=== PATIENT | male | born 1950 | race Caucasian/White ===

== ENCOUNTER 2016-04-26 08:59 | Outpatient (RCR) | payer MEDICARE, OTHER | END 2016-04-27 | disposition home or self-care (01) | LOC: CR 08:59 | PROVIDERS: ATTEND Internal Medicine Cardiovascular Disease | DX: Z48.812 Encounter for surgical aftercare following surgery on the circulatory system (principal); Z95.1 Presence of aortocoronary bypass graft | CPT/HCPCS: 93798 ==

== ENCOUNTER 2016-05-10 10:18 | Outpatient (RCR) | payer OTHER, MEDICARE ==
--- OUTSIDE RECORDS SUMMARY | 2016-04-28 11:45 | XMS REPORT | Continuity of Care Document ---
Author Author [facility] Organization [facility] Address Unknown Phone Unavailable Support Name Relationship Address Phone NAOMI JACOBSON MD Caregiver [address] [place], [place] [address] CHRISTOPHE ADHIKARI MD Caregiver [address] [facility] [address] [address] [address] Next Of Kin [address] [place] [address] Care Team Providers Care Medical Cost Consultant Name Role Phone NAOMI JACOBSON MD PCP Insurance Providers Payer Name Policy Number Subscriber Name Relationship [employer] [id number] Miguel Leal 18 Self / Same As Patient [facility] [id number] Miguel Leal 18 Self / Same As Patient Problems No problem information available. Medications No medication information available. Social History Social History Problem Response Recorded Date/Time Recent Foreign Travel No 01/28/2016 8:47am Hospital Discharge Instructions No hospital discharge instructions. Plan of Care Prescriptions See Medication Section Functional Status No functional status results. Allergies, Adverse Reactions, Alerts No allergy information available. Immunizations No immunization records. Vital Signs No known vital signs results. Results No known relevant diagnostic tests, laboratory data and/or discharge summary. Procedures No known history of procedures. Encounters Encounter Location Arrival/Admit Date Discharge/Depart Date Attending Provider Discharged Recurring [facility] 04/26/16 8:59am 11:59pm CHRISTOPHE ADHIKARI MD
== END 2016-07-27 | disposition home or self-care (01) ==
LOC: CR 10:18
PROVIDERS: ATTEND Internal Medicine Cardiovascular Disease
DX: Z48.812 Encounter for surgical aftercare following surgery on the circulatory system (principal); Z95.1 Presence of aortocoronary bypass graft
CPT/HCPCS: 93798

== ENCOUNTER → 2017-10-05 | Outpatient (CLI) | payer MEDICARE ==
[2017-10-05 07:32] LABS: ABSOLUTE RETIC # 49 10e9/L (24-90); BASOPHILS % (AUTO) 0 % (0-10); EOSINOPHILS # (AUTO) 0.1 10^3/uL (0.0-0.3); EOSINOPHILS % (AUTO) 1 % (0-10); HEMATOCRIT 35 % (40-54); HEMOGLOBIN 10.8 G/DL (13.3-17.7); LYMPHOCYTES % (AUTO) 24 % (12-44); MEAN CORPUSCULAR HEMOGLOBIN 25 PG (25-34); MEAN CORPUSCULAR HGB CONC 31 G/DL (32-36); MEAN CORPUSCULAR VOLUME 82 FL (80-99); MEAN PLATELET VOLUME 7.9 FL (7.4-10.4); MONOCYTES % (AUTO) 11 % (0-12); NEUTROPHILS # (AUTO) 5.3 X 10^3 (1.8-7.8); NEUTROPHILS % (AUTO) 64 % (42-75); PLATELET COUNT 311 10^3/uL (130-400); RED BLOOD COUNT 4.25 10^6/uL (4.35-5.85); RED CELL DISTRIBUTION WIDTH 18.9 % (10.0-14.5); RETICULOCYTE % 1.14 % (0.50-2.40); WHITE BLOOD COUNT 8.3 10^3/uL (4.3-11.0)
--- NOTE | 2017-10-05 13:27 | Diagnostic Imaging Report ---
PROCEDURE: US Gallbladder. TECHNIQUE: Multiple real-time grayscale images were obtained over the right upper quadrant in various projections. INDICATION: Nausea and vomiting for two weeks. FINDINGS: The liver is upper limits of normal in size at 18 cm. No discrete liver mass is identified. The portal vein is patent and shows normal directional flow. Gallbladder is somewhat distended, but no gallstones or sludge are identified. There is no wall thickening, pericholecystic fluid, or biliary ductal dilatation. The pancreas is obscured by bowel gas. The right kidney is unremarkable. There is no ascites. IMPRESSION: Mild gallbladder hydrops. No other significant abnormality is detected. Dictated by: Dictated on workstation # [id number]
== END ==
LOC: RAD 06:48
PROVIDERS: ATTEND Internal Medicine Cardiovascular Disease
DX: K82.1 Hydrops of gallbladder (principal); D64.9 Anemia, unspecified; R53.83 Other fatigue; Z95.1 Presence of aortocoronary bypass graft; Z95.0 Presence of cardiac pacemaker
CPT/HCPCS: 36415; 76705; 82607; 82728; 82746; 83540; 85025; 85045

== ENCOUNTER 2018-12-04 10:58 | Outpatient (RCR) | payer MEDICARE | END 2018-12-07 | disposition home or self-care (01) | PROVIDERS: ATTEND Neurological Surgery | DX: M50.30 Other cervical disc degeneration, unspecified cervical region (principal) ==

== ENCOUNTER 2018-12-14 11:16 | Outpatient (RCR) | payer MEDICARE | END 2018-12-14 14:10 | disposition home or self-care (01) | PROVIDERS: ATTEND Neurological Surgery | DX: M50.30 Other cervical disc degeneration, unspecified cervical region (principal) ==

== ENCOUNTER → 2021-01-17 | Outpatient (CLI) | payer MEDICARE, MEDICAID ==
[2021-01-17 17:09] LABS: CLARITY,URINE SLIGHTLY CLOUDY; COLOR,URINE YELLOW; GLUCOSE, URINE (UA) NEGATIVE (NEGATIVE); KETONES,URINE NEGATIVE (NEGATIVE); NITRITE,URINE POSITIVE (NEGATIVE); PROTEIN,URINE NEGATIVE (NEGATIVE)
[2021-01-17 17:10] LABS: BACTERIA,URINE LARGE /HPF; BILIRUBIN,URINE NEGATIVE (NEGATIVE); HYALINE CASTS, URINE 0-2 /LPF; LEUKOCYTE ESTERASE ,URINE 1+ (NEGATIVE); URINE OTHER XRAY DYE CRYSTALS /HPF
== END ==
PROVIDERS: ATTEND Family Medicine
DX: N39.0 Urinary tract infection, site not specified (principal)
CPT/HCPCS: 81000; 87088

== ENCOUNTER 2021-03-11 18:53 | Emergency (ER) | payer MEDICARE, MEDICAID ==
[~2021-03-11] VITALS: Ht 172.7 cm; Wt 100.0 kg
[2021-03-11 18:55] VITALS: BP 114/69
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
--- NOTE | 2021-03-11 19:46 | Diagnostic Imaging Report ---
PROCEDURE: CT abdomen and pelvis without contrast. TECHNIQUE: Multiple contiguous axial images were obtained through the abdomen and pelvis without the use of intravenous contrast. Auto Exposure Controls were utilized during the CT exam to meet ALARA standards for radiation dose reduction. INDICATION: Abdominal distention. COMPARISON: None. FINDINGS: There is chronic elevation of the left hemidiaphragm. Otherwise, lung bases are clear. The gallbladder, solid organs and vascular structures are grossly unremarkable. There is some gas and constipation throughout the colon. The small bowel is unremarkable. There is no obstruction, ileus, free air or free fluid. Urinary bladder is decompressed with a Dumont catheter. There is no prostate enlargement. Osseous structures are age-appropriate. IMPRESSION: 1. Constipation and gas throughout the colon. No bowel obstruction, free air or free fluid. 2. Mild atherosclerosis of the abdominal aorta without evidence of aneurysm. 3. Chronic elevation of the left hemidiaphragm. Dictated by: Dictated on workstation # [id number]
== END 2021-03-11 21:05 | disposition home or self-care (01) ==
LOC: EDUNIT# 18:53 → ER FS 18:54
DX: K59.03 Drug induced constipation (principal); R14.0 Abdominal distension (gaseous); E66.9 Obesity, unspecified; G47.30 Sleep apnea, unspecified; I10 Essential (primary) hypertension; Z68.33 Body mass index [BMI] 33.0-33.9, adult
CPT/HCPCS: 74176; 99283

== ENCOUNTER 2021-04-29 16:12 | Emergency (ER) | payer MEDICARE, MEDICAID ==
[2021-04-29] MEDS ORDERED: NS IV 500 ML 500 ML IV ONE (16:30)
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
[2021-04-29 16:38] LABS: BASOPHILS # (AUTO) 0.1 10^3/uL (0.0-0.1); BASOPHILS % (AUTO) 1 % (0-10); EOSINOPHILS # (AUTO) 0.1 10^3/uL (0.0-0.3); EOSINOPHILS % (AUTO) 1 % (0-10); HEMATOCRIT 35 % (40-54); HEMOGLOBIN 10.5 g/dL (13.3-17.7); LYMPHOCYTES # (AUTO) 1.6 10^3/uL (1.0-4.0); LYMPHOCYTES % (AUTO) 17 % (12-44); MEAN CORPUSCULAR HEMOGLOBIN 25 pg (25-34); MEAN CORPUSCULAR HGB CONC 30 g/dL (32-36); MEAN CORPUSCULAR VOLUME 82 fL (80-99); MONOCYTES # (AUTO) 0.6 10^3/uL (0.0-1.0); MONOCYTES % (AUTO) 7 % (0-12); NEUTROPHILS # (AUTO) 6.9 10^3/uL (1.8-7.8); NEUTROPHILS % (AUTO) 75 % (42-75); PLATELET COUNT 234 10^3/uL (130-400); WHITE BLOOD COUNT 9.2 10^3/uL (4.3-11.0)
[2021-04-29 16:40] LABS: BILIRUBIN,URINE NEGATIVE (NEGATIVE); CLARITY,URINE SL CLOUDY; COLOR,URINE YELLOW; GLUCOSE, URINE (UA) 2+ (NEGATIVE); KETONES,URINE TRACE (NEGATIVE); LEUKOCYTE ESTERASE ,URINE 2+ (NEGATIVE); NITRITE,URINE NEGATIVE (NEGATIVE); PH,URINE 6.5 (5-9); PROTEIN,URINE TRACE (NEGATIVE)
[2021-04-29 16:48] LABS: BACTERIA,URINE NEGATIVE /HPF; WBC,URINE 0-2 /HPF
[2021-04-29 17:01] LABS: BILIRUBIN,TOTAL 0.3 MG/DL (0.1-1.0); CALCIUM 9.4 MG/DL (8.5-10.1); CREATININE SERUM 0.8 MG/DL (0.60-1.30); POTASSIUM 4.2 MMOL/L (3.6-5.0); TOTAL PROTEIN 7.7 GM/DL (6.4-8.2)
[2021-04-29 17:02] LABS: ALBUMIN 3.8 GM/DL (3.2-4.5)
[2021-04-29 17:36] LABS: ABG PCO2 53 MMHG (35-45); ABG PO2 79 MMHG (79-93)
[2021-04-29 17:37] LABS: ABG BASE EXCESS 6.6 MMOL/L (-2.5-2.5); ABG OXYGEN SATURATION 96 % (94-100); ABG TCO2 34.4 MMOL/L (21.0-31.0)
[2021-04-29 17:38] LABS: ALLENS TEST OK; INSPIRED O2 4 L; PATIENT TEMP 36.4 C; VENTILATOR NO
[2021-04-29 18:15] VITALS: BP 120/58
== END 2021-04-29 18:25 | disposition home or self-care (01) ==
LOC: EDUNIT# 16:12 → ER FS 16:13
DX: T40.605A Adverse effect of unspecified narcotics, initial encounter (principal); E66.9 Obesity, unspecified; Z68.33 Body mass index [BMI] 33.0-33.9, adult; Z79.01 Long term (current) use of anticoagulants
CPT/HCPCS: 36415; 80053; 81000; 82805; 85025; 86141; 87070; 87077; 87205; 93005; 99291

== ENCOUNTER → 2021-06-28 | Outpatient (CLI) | payer MEDICARE, MEDICAID ==
[2021-06-28 14:32] LABS: CREATININE SERUM 0.68 MG/DL (0.60-1.30); POTASSIUM 4.9 MMOL/L (3.6-5.0)
[2021-06-28 14:33] LABS: ALBUMIN 3.9 GM/DL (3.2-4.5); BILIRUBIN,TOTAL 0.2 MG/DL (0.1-1.0); CALCIUM 8.8 MG/DL (8.5-10.1); HEMATOCRIT 36 % (40-54); HEMOGLOBIN 10.8 g/dL (13.3-17.7); MEAN CORPUSCULAR HEMOGLOBIN 24 pg (25-34); MEAN CORPUSCULAR HGB CONC 30 g/dL (32-36); MEAN CORPUSCULAR VOLUME 79 fL (80-99); MEAN PLATELET VOLUME 9.3 fL (9.0-12.2); PLATELET COUNT 251 10^3/uL (130-400); TOTAL PROTEIN 7.2 GM/DL (6.4-8.2); WHITE BLOOD COUNT 14.9 10^3/uL (4.3-11.0)
[2021-06-28 14:34] LABS: BACTERIA,URINE LARGE /HPF; BILIRUBIN,URINE NEGATIVE (NEGATIVE); CLARITY,URINE TURBID; COLOR,URINE YELLOW; GLUCOSE, URINE (UA) NEGATIVE (NEGATIVE); KETONES,URINE NEGATIVE (NEGATIVE); LEUKOCYTE ESTERASE ,URINE 3+ (NEGATIVE); NITRITE,URINE NEGATIVE (NEGATIVE); PH,URINE 8.5 (5-9); PROTEIN,URINE TRACE (NEGATIVE); TRIPLE PHOSPHATE CRYSTAL,UR LARGE /LPF; WBC,URINE TNTC /HPF
== END ==
PROVIDERS: ATTEND Family Medicine
DX: I48.91 Unspecified atrial fibrillation (principal); B96.4 Proteus (mirabilis) (morganii) as the cause of diseases classified elsewhere; I95.9 Hypotension, unspecified
CPT/HCPCS: 36415; 80053; 81000; 85027; 87088

== ENCOUNTER → 2021-07-21 | Outpatient (CLI) | payer MEDICARE, MEDICAID ==
[2021-07-21 11:56] LABS: BILIRUBIN,URINE NEGATIVE (NEGATIVE); CLARITY,URINE CLOUDY; COLOR,URINE YELLOW; GLUCOSE, URINE (UA) NEGATIVE (NEGATIVE); KETONES,URINE NEGATIVE (NEGATIVE); LEUKOCYTE ESTERASE ,URINE 1+ (NEGATIVE); NITRITE,URINE NEGATIVE (NEGATIVE); PH,URINE 6.5 (5-9); PROTEIN,URINE NEGATIVE (NEGATIVE)
[2021-07-21 12:14] LABS: BASOPHILS # (AUTO) 0.1 10^3/uL (0.0-0.1); BASOPHILS % (AUTO) 1 % (0-10); EOSINOPHILS # (AUTO) 0.1 10^3/uL (0.0-0.3); EOSINOPHILS % (AUTO) 1 % (0-10); HEMATOCRIT 33 % (40-54); HEMOGLOBIN 10.1 g/dL (13.3-17.7); LYMPHOCYTES % (AUTO) 20 % (12-44); MEAN CORPUSCULAR HEMOGLOBIN 24 pg (25-34); MEAN CORPUSCULAR HGB CONC 31 g/dL (32-36); MEAN CORPUSCULAR VOLUME 78 fL (80-99); MEAN PLATELET VOLUME 9.5 fL (9.0-12.2); MONOCYTES % (AUTO) 10 % (0-12); NEUTROPHILS # (AUTO) 6.8 10^3/uL (1.8-7.8); NEUTROPHILS % (AUTO) 69 % (42-75); PLATELET COUNT 270 10^3/uL (130-400); WHITE BLOOD COUNT 9.9 10^3/uL (4.3-11.0)
[2021-07-21 12:58] LABS: BACTERIA,URINE LARGE /HPF
[2021-07-21 12:59] LABS: AMORPHOUS SEDIMENT,UR MOD AMOR PHOSPHATE /LPF
[2021-07-21 13:02] LABS: ALBUMIN 3.7 GM/DL (3.2-4.5); BILIRUBIN,TOTAL 0.3 MG/DL (0.1-1.0); CREATININE SERUM 0.73 MG/DL (0.60-1.30); POTASSIUM 4.9 MMOL/L (3.6-5.0)
== END ==
PROVIDERS: ATTEND Family Medicine
DX: M62.81 Muscle weakness (generalized) (principal); N39.0 Urinary tract infection, site not specified
CPT/HCPCS: 80053; 81000; 85025; 87077; 87088

== ENCOUNTER → 2021-08-24 | Outpatient (CLI) | payer MEDICARE, MEDICAID ==
[2021-08-24 11:19] LABS: BILIRUBIN,URINE NEGATIVE (NEGATIVE); CLARITY,URINE CLOUDY; COLOR,URINE RED; GLUCOSE, URINE (UA) NEGATIVE (NEGATIVE); KETONES,URINE NEGATIVE (NEGATIVE); LEUKOCYTE ESTERASE ,URINE 2+ (NEGATIVE); NITRITE,URINE NEGATIVE (NEGATIVE); PROTEIN,URINE 1+ (NEGATIVE)
[2021-08-24 11:29] LABS: RBC,URINE TNTC /HPF
[2021-08-24 11:30] LABS: BACTERIA,URINE FEW /HPF; HYALINE CASTS, URINE 25-50 /LPF; WBC,URINE 50-100 /HPF
== END ==
PROVIDERS: ATTEND Family Medicine
DX: N31.8 Other neuromuscular dysfunction of bladder (principal)
CPT/HCPCS: 81000; 87088

== ENCOUNTER 2021-10-01 08:07 | Observation (INO) | payer MEDICARE, MEDICAID ==
[~2021-10-01] VITALS: Ht 172.7 cm; Wt 96.3 kg
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
[2021-10-01] MEDS ORDERED: methylPREDNISolone 125 MG (Solu-MEDROL) VIAL IV STA (08:18)
[2021-10-01 08:25] LABS: BASOPHILS % (AUTO) 1 % (0-10); EOSINOPHILS # (AUTO) 0.1 10^3/uL (0.0-0.3); EOSINOPHILS % (AUTO) 2 % (0-10); HEMATOCRIT 32 % (40-54); HEMOGLOBIN 9.5 g/dL (13.3-17.7); LYMPHOCYTES # (AUTO) 2.8 10^3/uL (1.0-4.0); LYMPHOCYTES % (AUTO) 34 % (12-44); MEAN CORPUSCULAR HEMOGLOBIN 24 pg (25-34); MEAN CORPUSCULAR HGB CONC 30 g/dL (32-36); MEAN CORPUSCULAR VOLUME 79 fL (80-99); MEAN PLATELET VOLUME 8.7 fL (9.0-12.2); MONOCYTES # (AUTO) 0.7 10^3/uL (0.0-1.0); MONOCYTES % (AUTO) 8 % (0-12); NEUTROPHILS # (AUTO) 4.7 10^3/uL (1.8-7.8); NEUTROPHILS % (AUTO) 55 % (42-75); PLATELET COUNT 260 10^3/uL (130-400); WHITE BLOOD COUNT 8.4 10^3/uL (4.3-11.0)
[2021-10-01] MEDS ORDERED: RT-ALBUTEROL/IPRATROPIUM 3 ML (DUONEB) VIAL INH ONE (08:30)
[2021-10-01 08:32] LABS: BILIRUBIN,URINE NEGATIVE (NEGATIVE); CLARITY,URINE SL CLOUDY; COLOR,URINE YELLOW; GLUCOSE, URINE (UA) NEGATIVE (NEGATIVE); KETONES,URINE NEGATIVE (NEGATIVE); LEUKOCYTE ESTERASE ,URINE 1+ (NEGATIVE); NITRITE,URINE POSITIVE (NEGATIVE); PROTEIN,URINE TRACE (NEGATIVE)
[2021-10-01 08:42] LABS: BACTERIA,URINE TRACE /HPF; RBC,URINE 0-2 /HPF
--- NOTE | 2021-10-01 08:44 | Diagnostic Imaging Report ---
INDICATION: Pneumonia, lethargy. COMPARISON: CT of abdomen and pelvis dated 03/11/2021 TECHNIQUE: Single radiograph of the chest dated 10/01/2021 FINDINGS: Postsurgical changes of a CABG. Pacer device is present with battery pack overlying left chest. Postsurgical changes noted within the cervicothoracic spine. Stable elevation of the left hemidiaphragm. The cardiac silhouette is enlarged. No significant pulmonary vascular congestion. Minimal left basilar pleural-parenchymal opacity. Minimal right basilar interstitial opacities. The upper lungs are clear. No significant right pleural effusion. No pneumothorax. No acute osseous abnormality. IMPRESSION: Tiny left basilar pleural-parenchymal opacity, which is felt to relate to a combination of pleural fluid/scarring with adjacent atelectasis. Minimal right basilar atelectasis and/or pneumonitis. Cardiomegaly without pulmonary vascular congestion. Additional postsurgical and chronic findings as above. Dictated by: Dictated on workstation # [id number]
[2021-10-01 08:56] LABS: FIBRIN DEGRADATION PRODUCTS 1.75 UG/ML (0.00-0.49); INR 1.2 (0.8-1.4); PROTHROMBIN TIME PATIENT 16.1 SEC (12.2-14.7)
[2021-10-01 08:59] LABS: ALANINE AMINOTRANSFERASE 10 U/L (0-55); ALKALINE PHOSPHATASE 92 U/L (40-136); BILIRUBIN,TOTAL 0.6 MG/DL (0.1-1.0); BUN/CREATININE RATIO 17; CARBON DIOXIDE 28 MMOL/L (21-32); CHLORIDE 99 MMOL/L (98-107); CREATININE SERUM 0.78 MG/DL (0.60-1.30); GFR ESTIMATED 95; GLUCOSE 76 MG/DL (70-105); POTASSIUM 4.4 MMOL/L (3.6-5.0); SODIUM 139 MMOL/L (135-145)
[2021-10-01 09:00] LABS: ALBUMIN 3.5 GM/DL (3.2-4.5); TOTAL PROTEIN 7.2 GM/DL (6.4-8.2)
[2021-10-01] MEDS ORDERED: NS 100 ML (IVPB) BAG IV ONE (09:15)
[2021-10-01] MEDS ORDERED: CATHETER FLUSH 10 ML SYR IV PRN (09:15)
[2021-10-01] MEDS ORDERED: HOLD METFORMIN - RECEIVED CONTRAST 20 ML VIAL IV SCH (09:15)
[2021-10-01] MEDS ORDERED: IOHEXOL 350 MG/ML 100 ML (OMNIPAQUE 350) VIAL IV ONE (09:15)
--- NOTE | 2021-10-01 10:09 | Diagnostic Imaging Report ---
PROCEDURE: CT angiography of the chest with contrast. TECHNIQUE: Multiple contiguous axial images were obtained through the chest after uneventful bolus administration of intravenous contrast. 3D reconstructed CTA MIP acquisitions were also performed. Auto Exposure Controls were utilized during the CT exam to meet ALARA standards for radiation dose reduction. INDICATION: Elevated D-dimer, COVID pneumonia COMPARISON: Radiographs dated 10/01/2021 FINDINGS: Postsurgical changes of a CABG. Pacer device is present with the battery pack overlying left chest. Postsurgical changes within the cervicothoracic spine. Chronic elevation left hemidiaphragm. Bilateral gynecomastia. The heart is enlarged. No pericardial effusion. Reflux of contrast into the inferior vena cava. Small bilateral pleural effusions are present. Calcified mediastinal and hilar lymph nodes are present. No pathologically enlarged lymph nodes within the chest. Ectasia of ascending thoracic aorta. No aortic dissection. No significant filling defect within the central or segmental pulmonary arteries. No pneumothorax. Significant opacities and volume loss noted within the left greater than right lung bases, particularly adjacent to the pleural effusions. Mild patchy reticular opacities are also identified within the lungs bilaterally. Indeterminate left renal hypodensity. The visualized upper abdomen is otherwise unremarkable. Scattered osseous degenerative changes without acute osseous abnormality. IMPRESSION: No significant pulmonary embolus. Small dependently layering right greater than left pleural effusions with adjacent atelectasis and infiltrate. This is superimposed with mild patchy reticular infiltrates. Cardiomegaly with reflux of contrast into the inferior vena cava suggesting heart failure. Chronic elevation left hemidiaphragm. Additional findings as above. Dictated by: Dictated on workstation # [id number]
[2021-10-01] MEDS ORDERED: CEFEPIME INJECTION 1,000 MG in NS (IVPB) 50 ML IV ONE (10:30)
[2021-10-01 11:00] LABS: ABG OXYGEN SATURATION 92 % (94-100); ABG PCO2 54 MMHG (35-45); ABG PH 7.41 (7.37-7.43); ABG PO2 62 MMHG (79-93); ABG TCO2 35.9 MMOL/L (21.0-31.0)
[2021-10-01 11:01] LABS: ALLENS TEST OK; INSPIRED O2 4 LITERS; PATIENT TEMP 35.7; VENTILATOR NO
[2021-10-01] MEDS ORDERED: ANTACID SUSP 30 ML UDC (MYLANTA) PO PRN (13:15)
[2021-10-01] MEDS ORDERED: ACETAMINOPHEN 325 MG TABLET PO PRN (13:15)
[2021-10-01] MEDS ORDERED: ONDANSETRON 4 MG/2 ML (SDV) Z0FRAN IV PRN (13:15)
[2021-10-01] MEDS ORDERED: morphine INJ 4 MG/ML 1 ML (VIAL/SYRINGE) IV PRN (13:15)
[2021-10-01] MEDS ORDERED: diphenhydrAMINE 25 MG TAB (BENADRYL) PO PRN (13:15)
[2021-10-01] MEDS ORDERED: ONDANSETRON 4 MG (ZOFRAN) ORAL DISSOLVE TAB PO PRN (13:15)
[2021-10-01] MEDS ORDERED: polyethylene glycoL POWDER 17 GM (MIRALAX) PACK PO PRN (13:15)
[2021-10-01] MEDS ORDERED: MELATONIN 3 MG TABLET PO PRN (13:15)
[2021-10-01] MEDS ORDERED: BISACODYL 10 MG SUPP (DULCOLAX) PR PRN (13:15)
[2021-10-01] MEDS ORDERED: CEFEPIME INJECTION 2,000 MG in NS (IVPB) 50 ML IV SCH (13:15)
[2021-10-01] MEDS ORDERED: diphenhydrAMINE 50 MG/ML INJ (BENADRYL) IVP PRN (13:15)
[2021-10-01] MEDS ORDERED: LIDOCAINE UROJET 2% GEL 10 ML PKG TOP NR (13:30)
[2021-10-01] MEDS ORDERED: NS IV 500 ML 500 ML ONE (13:51)
[2021-10-01] MEDS: ENOXAPARIN 40 MG/0.4 ML (LOVENOX) SYR SC SCH (14:44)
[2021-10-01] MEDS: AZITHROMYCIN INJECTION 500 MG in NS (IVPB) 250 ML IV SCH (14:45)
--- NOTE | 2021-10-01 14:48 | History & Physical-Hospitalist ---
VALERIODOTTY 10/01/21 1448: History of Present Illness HPI/Chief Complaint Miguel William is a 71y/o M w/ a PMH of CAD, paraplegia, diabetes, and sleep apnea who presented to the ER today due to hypoxia. He was [facility] into the [facility] after he was found to be having O2 saturation of around 80% on his normal 4L of O2. He was given a duoneb treatment and his saturation increased to 87%. Taken to ER via EMS. While with EMS he was given another duoneb treatment and O2 saturation increased to 94%. Pt did test positive for COVID on 09/26 and had been started on zithromax and molnupiravir. Pt reports that his breathing has improved since 09/26 but he had not noticed any difficulties in breathing at all today. Did not have any SOB when his O2 saturation was first tested. No increased SOB at the moment. Only respiratory sx he endorses is a cough. Denies that he was feeling increasingly tired or weak. Not having any new or increased pain. Denies any increased swelling in his legs. Source: patient, other (ED note) Exam Limitations: no limitations Date Seen 10/01/21 Attending Physician Chance Carlos MD PCP Admitting Physician: Anahi Palacios DO Attending Physician: Anahi Palacios DO Referring Physician Date of Admission Oct 01, 2021 at 12:29 Home Medications & Allergies Home Medications Reviewed patient Home Medication Reconciliation performed by pharmacy medication reconciliations appraisal technician and/or nursing. Patients Allergies have been reviewed. Allergies Allergies Coded Allergies No Known Allergies (Verified Allergy, Unknown, 03/11/21) Past Kegiyoh-Qrndds-Fypbcr Hx Patient Social History Employed/Student: retired Tobacco Use?: No Smoking Status: Never a Smoker Smokeless Tobacco Frequency: Never a User Use of E-Cig and/or Vaping dev: No Substance use?: No Alcohol Use?: No Pt feels they are or have been: No Immunizations Up To Date First/Initial COVID19 Vaccinat: Pt unable to recall but did recieve Second COVID19 Vaccination Ivan: Pt unable to recall but did recieve Current Status Advance Directives: No Communicates: Verbally Primary Language: South Korean Preferred Spoken Language: South Korean Is interpretation needed?: No Sensory deficits: Vision impairment Implanted or Applied Medical D: Pacemaker, Stents Past Medical History Surgeries: Cardiac, CABG Sleep Apnea Chronic Edema/Swelling, Coronary Artery Disease, Heart Murmur, High Cholesterol, Hypertension Spinal Cord Injury Chronic Constipation Arthritis, Chronic Back Pain Family Medical History No Pertinent Family Hx Review of Systems Constitutional: No chills, No fever, No weakness EENTM: No blurred vision, No double vision Respiratory: cough; No dyspnea on exertion, No short of breath Gastrointestinal: No abdominal pain, No nausea, No vomiting Musculoskeletal: No muscle pain, No muscle weakness Psychiatric/Neurological: Denies Headache, Denies Numbness, Denies Paresthesia Physical Exam Physical Exam Vital Signs Vital Signs - First Documented Capillary Refill : Less Than 3 Seconds Height, Weight, BMI Height: '" Weight: lbs. oz. kg; 31.78 BMI Method: General Appearance: No Apparent Distress, Obese HEENT: PERRL/EOMI; No Photophobia Neck: Non Tender, Supple Respiratory: Lungs Clear, Normal Breath Sounds, No Accessory Muscle Use Cardiovascular: Regular Rate, Rhythm, Normal Peripheral Pulses Gastrointestinal: Non Tender, Soft Extremity: Non Tender, No Calf Tenderness, Pedal Edema Neurologic/Psychiatric: Alert, Oriented x3 Results Results/Procedures Labs Laboratory Tests 10/01/21 08:15 Patient resulted labs reviewed. Assessment/Plan Admission Diagnosis COVID pneumonia UTI Acute heart failure Elevated D-dimer Diabetes Assessment and Plan COVID pneumonia -tested positive on 09/26, test today also positive -has been taking molnupiravir and zithromax -CXR done today showed, according to radiology, Tiny left basilar pleural- parenchymal opacity, which is felt to relate to a combination of pleural fluid/scarring with adjacent atelectasis. Minimal right basilar atelectasis and/or pneumonitis. -start decadron -supplemental O2 as needed -RT consulted UTI -UA positive for nitrates and LE -he does have an indwelling cath in place -start cefepime and zithromax for 6 days Acute heart failure -BNP of 3879 -CXR showed cardiomegaly without pulmonary vascular congestion. -unable to find any previous history of CHF on chart review -consult cardiology -consider echo Elevated D-dimer -D-dimer of 1.75 -chest CTA showed no signs of significant PE according to report -has been started on lovenox Diabetes -SSI -diabetic diet -continue to monitor DVT prophylaxis: lovenox GI prophylaxis: protonix Diet: diabetic diet Code status: full code PALACIOS,ANAHI ARIAS 10/02/215: History of Present Illness HPI/Chief Complaint CC: COVID PNA with acute respiratory failure HPI: This is a 71yoWM [facility] patient who presents with hypoxia with COVID. Source: patient, other (ED note) Exam Limitations: no limitations Time Seen by a Provider: 11:00 Past Efmvgly-Qxidqx-Xdgqqm Hx Patient Social History Marrital Status: single Employed/Student: retired Smokeless Tobacco Frequency: Never a User Current Status Sensory deficits: Vision impairment Implanted or Applied Medical D: Pacemaker Past Medical History Surgeries: Cardiac, CABG Chronic Edema/Swelling, Coronary Artery Disease, Heart Murmur, High Cholesterol, Hypertension Review of Systems Constitutional: see HPI Physical Exam Physical Exam General Appearance: No Apparent Distress, Chronically ill, Obese Respiratory: Lungs Clear, Normal Breath Sounds Cardiovascular: Regular Rate, Rhythm Neurologic/Psychiatric: Alert, Oriented x3 Assessment/Plan Admission Diagnosis COVID PNA Admission Status: Observation Reason for Inpatient Admission: COVID Diagnosis/Problems Diagnosis/Problems (1) Pneumonia due to COVID-19 virus Status: Acute Supervisory-Addendum Brief Verification & Attestation Participated in pt care: history, MDM, physical Personally performed: exam, history, MDM, supervision of care Care discussed with: Medical Student Procedures: n/a Results interpretation: Verified all documentation Verification and Attestation of Medical Student E/M Service A medical student performed and documented this service in my presence. I reviewed and verified all information documented by the medical student and made modifications to such information, when appropriate. I personally performed the physical exam and medical decision making. Anahi Palacios Oct 02, 2021,21:43 DOTTY LUO Oct 01, 2021 14:48 ANAHI PALACIOS DO Oct 02, 2021 21:45
[2021-10-01 15:25] VITALS: BP 106/83
[2021-10-01 15:58] VITALS: BP 156/92
[2021-10-01] MEDS: inSUlin ASPART (NovoLOG) 1 UNIT/0.01 ML (CHARGE PER UNIT) SC SCH ×2 (17:36→21:49)
[2021-10-01] MEDS: CEFEPIME 1,000 MG/NS 50 ML IVPB IV SCH ×4 (17:37→22:28)
[2021-10-01 19:08] VITALS: BP 148/70
[2021-10-01] MEDS: DOCUSATE SODIUM 100 MG (COLACE) CAP PO SCH (21:49)
[2021-10-02] VITALS: BP 127/74
[2021-10-02 04:00] VITALS: BP 111/59
[2021-10-02] MEDS: CEFEPIME 1,000 MG/NS 50 ML IVPB IV SCH ×6 (05:03→17:15)
[2021-10-02] MEDS: inSUlin ASPART (NovoLOG) 1 UNIT/0.01 ML (CHARGE PER UNIT) SC SCH ×3 (06:22→16:28)
[2021-10-02 06:40] LABS: BASOPHILS % (AUTO) 0 % (0-10); EOSINOPHILS % (AUTO) 0 % (0-10); HEMATOCRIT 29 % (40-54); HEMOGLOBIN 8.8 g/dL (13.3-17.7); LYMPHOCYTES # (AUTO) 0.9 10^3/uL (1.0-4.0); LYMPHOCYTES % (AUTO) 15 % (12-44); MEAN CORPUSCULAR HEMOGLOBIN 24 pg (25-34); MEAN CORPUSCULAR HGB CONC 31 g/dL (32-36); MEAN CORPUSCULAR VOLUME 79 fL (80-99); MEAN PLATELET VOLUME 8.8 fL (9.0-12.2); MONOCYTES # (AUTO) 0.6 10^3/uL (0.0-1.0); MONOCYTES % (AUTO) 11 % (0-12); NEUTROPHILS # (AUTO) 4.4 10^3/uL (1.8-7.8); NEUTROPHILS % (AUTO) 74 % (42-75); PLATELET COUNT 240 10^3/uL (130-400); WHITE BLOOD COUNT 5.9 10^3/uL (4.3-11.0)
[2021-10-02 07:02] LABS: ALBUMIN 3.3 GM/DL (3.2-4.5); BILIRUBIN,TOTAL 0.5 MG/DL (0.1-1.0); CALCIUM 8.9 MG/DL (8.5-10.1); CREATININE SERUM 0.75 MG/DL (0.60-1.30); POTASSIUM 4.2 MMOL/L (3.6-5.0); TOTAL PROTEIN 6.6 GM/DL (6.4-8.2)
[2021-10-02] MEDS: DOCUSATE SODIUM 100 MG (COLACE) CAP PO SCH (08:11)
[2021-10-02 08:21] VITALS: BP 99/55
[2021-10-02] MEDS ORDERED: CEFD300C3 PO (12:32)
[2021-10-02] MEDS ORDERED: DEXA6TAB6 PO (12:32)
--- NOTE | 2021-10-02 12:36 | Discharge Summary ---
Discharge Summary Hospital Course Was the Problem List Reviewed?: Yes Problems/Dx: (1) Pneumonia due to COVID-19 virus Status: Acute Hospital Course Date of Admission: Oct 01, 2021 at 12:29 Admission Diagnosis : Family Physician/Provider: Chance Carlos MD Date of Discharge: 10/02/21 Discharge Diagnosis: COVID PNA, acute resp failure Hospital Course: Miguel William is a 71y/o M who was admitted yesterday from the [facility] for covid pneumonia. First tested positive on 09/26 but was found to be having hypoxic episodes yesterday. He was placed on supplemental O2 here. UA showed an UTI. Started on cefepime, zithromax, and decadron. Today he is back to his baseline O2 requirements and is not reporting any symptoms. Will be discharged back to his assisted living facility on cefdinir, zithromax and decadron. DOTTY LUO Labs and Pending Lab Test: Laboratory Tests 10/01/21 15:26: Bedside Blood Gas pH (LAB) 7.333, Bedside Blood Gas pCO2 (LAB) 59.4H, Bedside Blood Gas pO2 (LAB) 41L, Bedside Blood Gas HCO3 (LAB) 31.5H, POC Blood Gas Total CO2 Calc 33H, Bedside Bl Gas O2 Saturation (Calc) 72L, Bedside Arterial Blood Base Excess 6H 10/01/21 15:56: Glucometer 237H 10/01/21 20:25: Glucometer 139H 10/02/21 06:19: Glucometer 104 10/02/21 06:29: White Blood Count 5.9, Red Blood Count 3.66L, Hemoglobin 8.8L, Hematocrit 29L, Mean Corpuscular Volume 79L, Mean Corpuscular Hemoglobin 24L, Mean Corpuscular Hemoglobin Concent 31L, Red Cell Distribution Width 18.5H, Platelet Count 240, Mean Platelet Volume 8.8L, Immature Granulocyte % (Auto) 1, Neutrophils (%) (Auto) 74, Lymphocytes (%) (Auto) 15, Monocytes (%) (Auto) 11, Eosinophils (%) (Auto) 0, Basophils (%) (Auto) 0, Neutrophils # (Auto) 4.4, Lymphocytes # (Auto) 0.9L, Monocytes # (Auto) 0.6, Eosinophils # (Auto) 0.0, Basophils # (Auto) 0.0, Immature Granulocyte # (Auto) 0.0, Sodium Level 137, Potassium Level 4.2, Chloride Level 101, Carbon Dioxide Level 28, Anion Gap 8, Blood Urea Nitrogen 14, Creatinine 0.75, Estimat Glomerular Filtration Rate 96, BUN/Creatinine Ratio 19, Glucose Level 110H, Calcium Level 8.9, Corrected Calcium 9.5, Total Bilirubin 0.5, Aspartate Amino Transf (AST/SGOT) 14, Alanine Aminotransferase (ALT/SGPT) 13, Alkaline Phosphatase 76, Total Protein 6.6, Albumin 3.3 10/02/21 12:16: Glucometer 128H Home Meds Active Decadron (Dexamethasone) 6 Mg Tablet 6 Mg PO DAILY Cefdinir 300 Mg Capsule 300 Mg PO BID Assessment/Pt Instructions NH rounds Discharge Planning: <30 minutes discharge planning Discharge Instructions Discharge Diet: No Restrictions Discharge Physical Examination Vital Signs Vital Signs Date Time Temp Pulse Resp B/P (MAP) Pulse Ox O2 Delivery O2 Flow Rate FiO2 10/02/21 12:21 60 10/02/21 08:41 96 Nasal Cannula 4.00 10/02/21 08:21 35.7 12 99/55 (70) General Appearance: No Apparent Distress, WD/WN, Chronically ill, Obese Allergies: Coded Allergies: No Known Allergies (Verified Allergy, Unknown, 03/11/21) Discharge Summary Date of Admission Oct 01, 2021 at 12:29 Date of Discharge Discharge Date: Oct 02, 2021 Admission Diagnosis COVID pneumonia UTI Acute heart failure Elevated D-dimer Diabetes EDEN PALACIOS DO Oct 02, 2021 12:36
--- NOTE | 2021-10-02 12:40 | Progress Note ---
DOTTY LUO 10/02/21 1240: Progress Note Miguel William is a 71y/o M who was admitted yesterday from the [place] [facility] for covid pneumonia. First tested positive on 09/26 but was found to be having hypoxic episodes yesterday. He was placed on supplemental O2 here. UA showed an UTI. Started on cefepime, zithromax, and decadron. Today he is back to his baseline O2 requirements and is not reporting any symptoms. Will be discharged back to his assisted living facility on cefdinir, zithromax and decadron. EDEN PALACIOS DO 10/02/21 2214: Supervisory-Addendum Brief Verification & Attestation Participated in pt care: history, MDM, physical Personally performed: exam, history, MDM, supervision of care Care discussed with: Medical Student Procedures: n/a Results interpretation: Verified all documentation Verification and Attestation of Medical Student E/M Service A medical student performed and documented this service in my presence. I reviewed and verified all information documented by the medical student and made modifications to such information, when appropriate. I personally performed the physical exam and medical decision making. Eden Palacios, Oct 02, 2021,22:13 DOTTY LUO Oct 02, 2021 12:40 EDEN PALACIOS DO Oct 02, 2021 22:14
[2021-10-02] MEDS: ENOXAPARIN 40 MG/0.4 ML (LOVENOX) SYR SC SCH (14:13)
[2021-10-02] MEDS: AZITHROMYCIN INJECTION 500 MG in NS (IVPB) 250 ML IV SCH (14:13)
[2021-10-02 14:18] VITALS: BP 127/72
[2021-10-02] MEDS ORDERED: CALC625T8 PO (15:12)
[2021-10-02] MEDS ORDERED: ATOR80TA76 PO (15:17)
[2021-10-02] MEDS ORDERED: DULA0.75 SQ (15:17)
[2021-10-02] MEDS ORDERED: CHOL50005 PO (15:17)
[2021-10-02] MEDS ORDERED: DIAZ10TA3 PO (15:17)
[2021-10-02 16:25] VITALS: BP 133/75
[2021-10-02 18:46] VITALS: BP 133/75
== END 2021-10-02 18:45 ==
LOC: EDUNIT# 08:07 → ER FS 08:09 → INTOOBSV 12:29 → CSD 12:29
PROVIDERS: ADMIT Internal Medicine; ATTEND Internal Medicine
DX: U07.1 COVID-19 (principal); N39.0 Urinary tract infection, site not specified; I50.9 Heart failure, unspecified
CPT/HCPCS: 36415; 71045; 71275; 80053; 81000; 82805; 82947; 83605; 83735; 83880; 84484; 85025; 85379; 85610; 85730; 87040; 87077; 87088; 87186; 87636; 94640; 96366; 96372; 96375; 96376; Q9967

== ENCOUNTER → 2021-12-01 | Outpatient (CLI) | payer MEDICARE, MEDICAID ==
[~2021-12-01] MED LIST: ATOR80TA76 PO; CALC625T8 PO; CEFD300C3 PO; CHOL50005 PO; DEXA6TAB6 PO; DIAZ10TA3 PO; DULA0.75 SQ
[2021-12-01 12:16] LABS: BILIRUBIN,URINE NEGATIVE (NEGATIVE); CLARITY,URINE TURBID; COLOR,URINE YELLOW; GLUCOSE, URINE (UA) NEGATIVE (NEGATIVE); KETONES,URINE NEGATIVE (NEGATIVE); LEUKOCYTE ESTERASE ,URINE 3+ (NEGATIVE); NITRITE,URINE POSITIVE (NEGATIVE); PH,URINE 7.5 (5-9); PROTEIN,URINE 1+ (NEGATIVE)
[2021-12-01 12:18] LABS: HEMATOCRIT 30 % (40-54); HEMOGLOBIN 9.2 g/dL (13.3-17.7); MEAN CORPUSCULAR HEMOGLOBIN 24 pg (25-34); MEAN CORPUSCULAR HGB CONC 31 g/dL (32-36); MEAN CORPUSCULAR VOLUME 78 fL (80-99); MEAN PLATELET VOLUME 9.6 fL (9.0-12.2); PLATELET COUNT 313 10^3/uL (130-400); WHITE BLOOD COUNT 9.4 10^3/uL (4.3-11.0)
[2021-12-01 12:26] LABS: BACTERIA,URINE LARGE /HPF; TRIPLE PHOSPHATE CRYSTAL,UR RARE /LPF; WBC,URINE TNTC /HPF
[2021-12-01 12:44] LABS: CREATININE SERUM 0.7 MG/DL (0.60-1.30); POTASSIUM 3.7 MMOL/L (3.6-5.0)
[2021-12-01 12:45] LABS: ALBUMIN 3.6 GM/DL (3.2-4.5); BILIRUBIN,TOTAL 0.6 MG/DL (0.1-1.0); CALCIUM 9.1 MG/DL (8.5-10.1); TOTAL PROTEIN 7.2 GM/DL (6.4-8.2)
== END ==
PROVIDERS: ATTEND Family Medicine
DX: R53.83 Other fatigue (principal)
CPT/HCPCS: 80053; 81000; 85027; 87077; 87088; 87186

== ENCOUNTER 2021-12-02 02:31 | Emergency (ER) | payer MEDICARE, MEDICAID ==
[2021-12-02] MEDS ORDERED: EPINEPHrine 0.1 MG/ML 10 ML (HOSPIRA) SYR IJ ONE (02:36)
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
== END 2021-12-02 08:55 | disposition expired ==
LOC: EDUNIT# 02:32 → ER FS 02:35
DX: I46.9 Cardiac arrest, cause unspecified (principal)
CPT/HCPCS: 36680